=== PATIENT | male | born 1995 | race Caucasian/White ===

== ENCOUNTER 2019-05-08 21:34 | Emergency (ER) | payer BC, SELFPAY ==
--- NOTE | 2019-05-08 21:40 | ED.GENADUL_ITS ---
Discharge Plan Disposition Patient Disposition: HOME Condition: Good Discharge Details Chief Complaint: Laceration Clinical Impression: Laceration of brow without complication, Concussion Primary Care Provider: Amee,Local ED Provider: Rahul Patrick Home Meds and New Rx's Prescriptions: No Action No Known Home Meds RF: 0 Discharge Instructions Instructions: Care For Your Stitches (ED), Facial Laceration (ED) Additional Instructions: Please leave the dressing on for 24 hours, then you may remove and begin cleaning the wound at least twice a day with soap and water. Continue to apply antibiotic ointment. Do not directly soak the area. Watch for any signs of infection and return if any increasing redness, swelling, pain, drainage. Please return the next 5 to 7 days to have your sutures removed. After sutures are removed please apply moisturizer to the area 2 times per day for the next 1 to 2 years to help mitigate scar. If you notice any worsening of your symptoms, or any new symptoms such as vomiting, diarrhea, fever, chills, shortness of breath, chest pain, numbness, weakness, or fainting , please return immediately to the emergency department for reevaluation. Please follow up with your primary care provider as soon as possible for reassessment and reevaluation. As always, it was a pleasure participating in your medical care today. Medical Decision Making This is a pleasant 24-year-old male who is uncertain of his tetanus status who presents with a laceration to his right brow. It occurred less than an hour ago when he was ice getting slipped fell and hit his brow with his glasses. It caused a small 3 cm laceration. He had no loss of consciousness, no red flags of vision changes, tenderness on bony palpation, numbness tingling weakness. Neurologic exam is unremarkable. No clinical evidence of significant acute central abnormality. I did discuss CT options for the patient and at this time through notable discussion, weighing the risks and benefits, and a shared decision making process the patient has refused imaging at this time. Patient is of an appropriate age to make decisions. The patient is of sound mind, appears clinically sober, and has capacity to make decisions by my clinical exam. Respecting the patient's wishes we will hold off on imaging. At this time the patient signs and symptoms are clinically inconsistent with a significant acute intracranial abnormality. There was cleaned anesthetized, tetanus was updated. 3 simple interrupted sutures using 6-0 Ethilon were placed. Patient tolerated this well. Discussed red flags which to return and suture instructions that are customary for this. I have extensively reviewed the treatment plan and dis charge instructions with the patient. I have addressed all patient concerns at this time. The patient was made aware of what symptoms to monitor for that would warrant a return to the emergency department. Discussed the plan with the patient, they demonstrate verbal understanding and agreement with our assessment and plan at this time. HPI General Date/Time Provider Initiated Documentation: 05/08/19 21:36 . HPI Narrative: This is a 24-year-old male with no significant past medical history who presents today for evaluation of laceration to his right brow. Slightly less than an hour prior to arrival the patient was ice skating, slipped, and hit his head on the ice. He actually did not he did overly hard, however he did have his glasses on which pushed up against his brow and caused a small cut. He had no loss of consciousness, he recalls the entire event. He denies any numbness tingling weakness vision changes or even significant headache for that matter. He denies any other complaints. He has applied pressure and a bandage to his right head since this occurred. He is uncertain as far as when his last tetanus was. He has no other complaints at this time. No other modifying factors. Related Data Home Medications Medication Instructions Recorded Confirmed Unknown [No Known Home Meds] 05/08/19 05/08/19 Allergies Allergy/AdvReac Type Severity Reaction Status Date / Time No Known Allergies Allergy Unverified 05/08/19 21:48 Review of Systems All systems reviewed & are unremarkable except as noted in HPI and below [facility] Medical History (Updated 05/08/19 @ 22:08 by Rahul Patrick DO) No acute medical problems (Acute) Surgical History (Updated 05/08/19 @ 21:49 by Nuzhat Herrera) No history of previous surgery (Acute) Social History Smoking/Tobacco Use Status: Never Substance use type: does not use Do you feel safe at home: Yes Do you feel safe in your relationship?: Yes Exam Narrative Exam Narrative: 1.Const: Well-nourished, Well-developed, appearing stated age 2.Eyes: PERRL, no conjunctival injection, and symmetrical lids. 3.ENT: Atraumatic external nose and ears. Small linear laceration just above the right brow that is 2.5 cm in length. No evidence of significant tenderness over the zygomatic arch or the brow itself. No evidence of significant bony abnormality. Mild swelling. Minimal bleeding. Moist MM. Neck: Symmetric, trachea midline, No thyromegaly. There is no evidence of raccoon eyes, moreira sign, CSF rhinorrhea, mastoid tenderness, cranial crepitus, hemotympanum, exophthalmos, or hyphema. Patient demonstrates intact dentition with no signs of tooth avulsion or fracture, no signs of jaw deformity, no evidence of a LeFort's fracture, with an intact palate, nose and orbital region. There is no evidence of a nasal septal hematoma. No proptosis. Jaw closes symmetrically. Airway is clear. 4.CVS: +S1/S2, No murmurs or gallops. Peripheral pulses 2+ and equal in all extremities. Brisk capillary refill in all extremities. 5.RESP: Unlabored respiratory effort. Clear to auscultation bilaterally. No wheezes rales or rhonchi 6.GI: Soft, Nontender/Nondistended, No hepatosplenomegaly. No guarding or rebound. 7.MSK: Normocephalic/Atraumatic, Extremities w/o deformity or ttp No cyanosis or clubbing, Normal movement of all extremities 8.Skin: Warm, Dry. No rashes or lesions. 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 Sensation grossly intact, no focal neurologic deficits. 10.Psych: (AAO) x3. Appropriate mood and affect Procedures Laceration Laceration 1: Site: scalp Side (If applicable): right Size (cm): 2.5 Description: linear Depth: simple, single layer Local Anesthetic: Lidocaine 1% Amount of anesthesia used (mL): 5 Pre-repair: wound explored, irrigated extensively and deep structures intact Skin layer closed with: nylon Size (cm): 6-0 Number of sutures: 3 Technique: simple, interrupted
[2019-05-08 21:43] VITALS: BP 127/75; PULSE 82; RESP 16; TEMP 36.6; O2SAT 98
== END 2019-05-08 22:15 | disposition home or self-care (01) ==
PROVIDERS: Emergency Provider Student in an Organized Health Care Education/Training Program
DX: S01.111A Laceration without foreign body of right eyelid and periocular area, initial encounter (principal); S06.0X0A Concussion without loss of consciousness, initial encounter; W00.0XXA Fall on same level due to ice and snow, initial encounter; Y93.21 Activity, ice skating
CPT/HCPCS: 12011; 90471

== ENCOUNTER 2019-05-14 17:25 | Emergency (ER) | payer BC, SELFPAY ==
[2019-05-14 17:28] VITALS: BP 134/70; PULSE 86; RESP 16; TEMP 36.7; O2SAT 97
--- NOTE | 2019-05-14 17:38 | ED.GENADUL_ITS ---
Discharge Plan Disposition Patient Disposition: HOME Condition: Good Discharge Details Chief Complaint: SutureRem Clinical Impression: Visit for suture removal Primary Care Provider: Amee,Local ED Provider: Rahul Patrick Home Meds and New Rx's Prescriptions: No Action No Known Home Meds RF: 0 Discharge Instructions Additional Instructions: Please continue to apply moisture to the affected area 2-3 times per day, keep it out of the sun and always apply sunscreen to prevent any continued scarring. If you notice any worsening of your symptoms, or any new symptoms such as vomiting, diarrhea, fever, chills, shortness of breath, chest pain, numbness, weakness, or fainting , please return immediately to the emergency department for reevaluation. Please follow up with your primary care provider as soon as possible for reassessment and reevaluation. As always, it was a pleasure participating in your medical care today. Discharge Data Discharge Date/Time-TO BE ENTERED AT DEPARTURE: 05/14/19 17:54 Medical Decision Making Patient had a laceration less than a week ago, 3 simple interrupted sutures removed, patient doing well, skin is healing excellently with excellent reaction approximation. No signs of infection. I have extensively reviewed the treatment plan and discharge instructions with the patient. I have addressed all patient concerns at this time. The patient was made aware of what symptoms to monitor for that would warrant a return to the emergency department. Discussed the plan with the patient, they demonstrate verbal understanding and agreement with our assessment and plan at this time. HPI General Date/Time Provider Initiated Documentation: 05/14/19 17:29 . HPI Narrative: Pleasant 24-year-old male who presents for suture removal. Less than a week ago he did a laceration to his right brow, I sutured it with 3 simple interrupted sutures. He has been doing well, no complaints of redness or drainage. Related Data Home Medications Medication Instructions Recorded Confirmed Unknown [No Known Home Meds] 05/08/19 05/14/19 Allergies Allergy/AdvReac Type Severity Reaction Status Date / Time No Known Allergies Allergy Unverified 05/14/19 17:30 General Stated Complaint: SutureRem ADONIS: 5 Review of Systems All systems reviewed & are unremarkable except as noted in HPI and below [facility] Medical History (Updated 05/14/19 @ 17:39 by Rahul Patrick DO) No acute medical problems (Acute) Surgical History (Updated 05/08/19 @ 21:49 by Nuzhat Herrera) No history of previous surgery (Acute) Social History Smoking/Tobacco Use Status: Never Substance use type: does not use Do you feel safe at home: Yes Do you feel safe in your relationship?: Yes Exam Narrative Exam Narrative: 1.Const: Well-nourished, Well-developed, appearing stated age 2.Eyes: PERRL, no conjunctival injection, and symmetrical lids. 3.ENT: Atraumatic external nose and ears. Moist MM. Neck: Symmetric, trachea midline, No thyromegaly. 4.CVS: +S1/S2, No murmurs or gallops. Peripheral pulses 2+ and equal in all extremities. Brisk capillary refill in all extremities. 5.RESP: Unlabored respiratory effort. Clear to auscultation bilaterally. No wheezes rales or rhonchi 6.GI: Soft, Nontender/Nondistended, No hepatosplenomegaly. No guarding or rebound. 7.MSK: Normocephalic/Atraumatic, Extremities w/o deformity or ttp No cyanosis or clubbing, Normal movement of all extremities 8.Skin: Warm, Dry. No rashes or lesions. 3 simple interrupted sutures are in place, no evidence of significant redness or drainage, skin is well-healed. 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 Sensation grossly intact, no focal neurologic deficits. 10.Psych: (AAO) x3. Appropriate mood and affect Course Vital Signs Vital signs: Vital Signs Temperature 36.7 C 05/14/19 17:28 Pulse 86 05/14/19 17:28 Respiratory Rate 16 05/14/19 17:28 Blood Pressure 134/70 05/14/19 17:28 Pulse Oximetry 97 05/14/19 17:28 Temperature 36.7 C 05/14/19 17:28 Temperature Source Temporal Artery Scan 05/14/19 17:28 Pulse 86 05/14/19 17:28 Respiratory Rate 16 05/14/19 17:28 Respiratory Effort Non-Labored 05/14/19 17:28 Blood Pressure 134/70 05/14/19 17:28 Blood Pressure Position Sitting 05/14/19 17:28 Pulse Oximetry 97 05/14/19 17:28 Oxygen Delivery Method Room Air 05/14/19 17:28 Oxygen Flow Rate 0 05/14/19 17:28 Pain Level 0 05/14/19 17:28
== END 2019-05-14 17:54 | disposition home or self-care (01) ==
LOC: ER 18:06
PROVIDERS: Emergency Provider Student in an Organized Health Care Education/Training Program
DX: S01.111D Laceration without foreign body of right eyelid and periocular area, subsequent encounter (principal); W00.0XXD Fall on same level due to ice and snow, subsequent encounter; Z48.02 Encounter for removal of sutures